=== PATIENT | female | born 1960 | race Caucasian/White ===

== ENCOUNTER 2017-03-16 13:47 | Emergency (ER) | payer BC ==
[~2017-03-16] VITALS: Ht 165.1 cm; Wt 61.3 kg
[~2017-03-16 13:47] MED LIST: CHOL200010 PO; ESTCR TOP; HYDR5TAB PO; PROG1CAP PO; THY/30 PO; THYR90TA PO; [UNRECOGNIZED DRUG - CODE] TOP
[2017-03-16 13:51] VITALS: TEMP 36.8; Ht 165.1 cm; Wt 61.3 kg
[2017-03-16] MEDS ORDERED: LORAZEPAM 2 MG/ML 1 ML VIAL IV STA (14:13)
[2017-03-16 14:31] LABS: BASO % 0.3 %; BASO ABS # 0.02 K/uL (0-0.2); COMPLETE YES; EOS % 0.8 %; HEMATOCRIT 47.7 % (37-47); IG% 0.1 %; LYMPH % 28.4 %; LYMPH ABS # 2.26 K/uL (1.2-3.4); MEAN CELL VOLUME 89.3 fL (80-100); MEAN CORPUSCULAR HEMOGLOBIN 30.7 pg (25-34); MEAN CORPUSCULAR HGB CONC 34.4 g/dl (32-36); MONO % 6.7 %; NEUT % 63.7 %; PLATELET COUNT 239 K/uL (130-400); RED BLOOD COUNT 5.34 M/uL (4.2-5.4); WHITE BLOOD COUNT 7.95 K/uL (4.8-10.8)
--- NOTE | 2017-03-16 14:37 | DIAGNOSTIC IMAGING REPORT ---
SINGLE VIEW CHEST CLINICAL HISTORY: Dyspnea. FINDINGS: An AP, portable, upright chest radiograph is compared to study dated 11/09/2015. The examination is degraded by portable technique and patient rotation. The cardiomediastinal silhouette is unremarkable. The lungs and pleural spaces are clear. No pneumothorax is seen. The bony thorax is grossly intact. Fusion hardware is seen in the lower cervical spine. IMPRESSION: No active disease in the chest. Electronically signed by: James Roland M.D. 03/16/2017 2:35 PM Dictated Date/Time: 03/16/2017 2:35 PM
[2017-03-16 14:41] LABS: PROTHROMBIN TIME (PATIENT) 11.2 SECONDS (9.0-12.0)
[2017-03-16 14:48] LABS: ALT/SGPT 21 U/L (12-78); AST/SGOT 11 U/L (15-37); BLOOD UREA NITROGEN 19 mg/dl (7-18); BUN/CREATININE RATIO 23.3 (10-20); CALCIUM 8.9 mg/dl (8.5-10.1); CARBON DIOXIDE 24 mmol/L (21-32); CHLORIDE 106 mmol/L (98-107); GLUCOSE 99 mg/dl (70-99); MAGNESIUM 2.4 mg/dl (1.8-2.4); POTASSIUM 3.4 mmol/L (3.5-5.1); SODIUM 140 mmol/L (136-145)
[2017-03-16 14:57] LABS: ALKALINE PHOSPHATASE 51 U/L (45-117); THYROID STIMULATING HORMONE < 0.005 uIu/ml (0.300-4.500)
[2017-03-16] MEDS ORDERED: METOPROLOL TARTRATE 1 MG/ML VIAL IV STA (15:04)
[2017-03-16] MEDS ORDERED: POTASSIUM CHLORIDE 10 MEQ TABCR PO STA (15:04)
[2017-03-16] MEDS ORDERED: SODIUM CHLORIDE 0.9% 1000ML 1,000 ML IV STA (15:04)
[2017-03-16] MEDS ORDERED: ESTR0.5T3 PO (15:13)
[2017-03-16 16:16] VITALS: BP 144/80; PULSE 108; O2SAT 98
--- NOTE | 2017-03-16 17:40 | EMERGENCY ROOM VISIT NOTE ---
History Report prepared by Purnima: Christine Garibay Under the Supervision of: Dr. Lanre Burden M.D. First contact with patient: 13:53 Chief Complaint: TACHYCARDIA Stated Complaint: RAPID HEARTBEAT, SOB, DIZZY, ANXIETY Nursing Triage Summary: triage note: pt reports feeling dizzy and "my heart is going really fast." pt reports "it got bad while i was at the grocery store about an hour." History of Present Illness The patient is a 56 year old female who presents to the Emergency Room with complaints of constant tachycardia beginning [employer]. The patient developed palpitations around 10:30am today. She took deep breaths and her symptoms resolved. She called [facility] to make an appointment with her PCP for this afternoon. A couple of hours later the patient was in the grocery store when she felt that her heart was racing. She became lightheaded and anxious and felt like she was going to pass out. The patient felt that she could not wait to be evaluated so she had her daughter bring her to the ED. She has anxiety and states that she has been feeling very anxious lately. The patient denies recent illness, fevers, shortness of breath, vomiting, diarrhea, abdominal pain, urinary symptoms, rectal bleeding, and abnormal vaginal bleeding or discharge. She avoids caffeine. She has been drinking fluids. The patient denies unintentional weight loss. She denies any history of WPW. Source of History: patient Onset: [employer] Position: chest Quality: other (tachycardia) Timing: constant Modifying Factors (Worsening): other (anxiety) Modifying Factors (Relieving): breathing Associated Symptoms: No fevers, No chest pain, No SOB, No vomiting, No abdominal pain, No diarrhea, No urinary symptoms Review of Systems See HPI for pertinent positives & negatives. A total of 10 systems reviewed and were otherwise negative. Past Medical & Surgical Medical Problems: (1) Hypothyroidism (2) Polyp of colon Surgical Problems: (1) H/O colonoscopy Family History Cancer Diabetes mellitus Hypertension Social History Smoking Status: Never Smoker Marital Status: Housing Status: lives with significant other Current/Historical Medications Scheduled Cholecalciferol (Vitamin D), 2,000 UNITS PO Q2D Estradiol (Estradiol), 1 TAB PO DAILY Hydrocortisone (Cortef), 5 MG PO 5-6XD Progesterone Micronized (Progesterone), 100 MG PO DAILY Testosterone Propionate (First-Testosterone), 1 APPLN TOP DAILY Thyroid ([place] Thyroid), 90 MG PO DAILY Thyroid ([place] Thyroid), 30 MG PO DAILY Allergies Coded Allergies: Sulfamethoxazole w/Trimethoprim (Verified Allergy, Unknown, HIVES, 03/16/17 ) Morphine (Verified Adverse Reaction, Unknown, nausea, 03/16/17) Physical Exam Vital Signs Date Time Temp Pulse Resp B/P (MAP) Pulse Ox O2 Delivery O2 Flow Rate FiO2 03/16/17 16:16 108 20 144/80 98 03/16/17 15:45 105 20 132/79 98 Room Air 03/16/17 15:19 122 134/82 03/16/17 15:05 124 20 134/82 96 Room Air 03/16/17 14:04 138 03/16/17 13:51 36.8 145 18 170/102 99 Room Air Physical Exam Constitutional: Vital signs reviewed. Eyes: Pupils are equal round reactive to light. Conjunctiva are noninjected. ENT: Pharynx is clear without erythema or exudate. Mucous membranes are moist. Neck supple without meningeal signs. Respiratory: Clear to auscultation bilaterally. Breath sounds are equal bilaterally. Cardiovascular: Tachycardic rate at 142 and regular rhythm. No rubs or gallops. GI: Soft, nondistended and nontender. Bowel sounds are present. Musculoskeletal: No peripheral edema. No lower extremity tenderness. Integumentary: No cyanosis. Neurological: The patient is awake and alert. No focal deficits. Psychiatric: Anxious Medical Decision & Procedures ER Provider Diagnostic Interpretation: Radiology results as stated below per my review and the radiologist's interpretation: SINGLE VIEW CHEST CLINICAL HISTORY: Dyspnea. FINDINGS: An AP, portable, upright chest radiograph is compared to study dated 11/09/2015. The examination is degraded by portable technique and patient rotation. The cardiomediastinal silhouette is unremarkable. The lungs and pleural spaces are clear. No pneumothorax is seen. The bony thorax is grossly intact. Fusion hardware is seen in the lower cervical spine. IMPRESSION: No active disease in the chest. Electronically signed by: James Roland M.D. 03/16/2017 2:35 PM Dictated Date/Time: 03/16/2017 2:35 PM Laboratory Results 03/16/17 14:10 Red Blood Count 5.34, Mean Corpuscular Volume 89.3, Mean Corpuscular Hemoglobin 30.7, Mean Corpuscular Hemoglobin Concent 34.4, Mean Platelet Volume 10.0, Neutrophils (%) (Auto) 63.7, Lymphocytes (%) (Auto) 28.4, Monocytes (%) (Auto) 6.7, Eosinophils (%) (Auto) 0.8, Basophils (%) (Auto) 0.3, Neutrophils # (Auto) 5.07, Lymphocytes # (Auto) 2.26, Monocytes # (Auto) 0.53, Eosinophils # (Auto) 0.06, Basophils # (Auto) 0.02 03/16/17 14:10 Test 03/16/17 14:10 03/16/17 14:21 White Blood Count 7.95 K/uL (4.8-10.8) Red Blood Count 5.34 M/uL (4.2-5.4) Hemoglobin 16.4 g/dL (12.0-16.0) Hematocrit 47.7 % (37-47) Mean Corpuscular Volume 89.3 fL (80-100) Mean Corpuscular Hemoglobin 30.7 pg (25-34) Mean Corpuscular Hemoglobin Concent 34.4 g/dl (32-36) Platelet Count 239 K/uL (130-400) Mean Platelet Volume 10.0 fL (7.4-10.4) Neutrophils (%) (Auto) 63.7 % Lymphocytes (%) (Auto) 28.4 % Monocytes (%) (Auto) 6.7 % Eosinophils (%) (Auto) 0.8 % Basophils (%) (Auto) 0.3 % Neutrophils # (Auto) 5.07 K/uL (1.4-6.5) Lymphocytes # (Auto) 2.26 K/uL (1.2-3.4) Monocytes # (Auto) 0.53 K/uL (0.11-0.59) Eosinophils # (Auto) 0.06 K/uL (0-0.5) Basophils # (Auto) 0.02 K/uL (0-0.2) RDW Standard Deviation 40.8 fL (36.4-46.3) RDW Coefficient of Variation 12.7 % (11.5-14.5) Immature Granulocyte % (Auto) 0.1 % Immature Granulocyte # (Auto) 0.01 K/uL (0.00-0.02) Prothrombin Time 11.2 SECONDS (9.0-12.0) Prothromb Time International Ratio 1.0 (0.9-1.1) Activated Partial Thromboplast Time 25.6 SECONDS (21.0-31.0) Partial Thromboplastin Ratio 1.0 Anion Gap 10.0 mmol/L (3-11) Est Creatinine Clear Calc Drug Dose 71.5 ml/min Estimated GFR () 96.2 Estimated GFR (Non- 83.0 BUN/Creatinine Ratio 23.3 (10-20) Calcium Level 8.9 mg/dl (8.5-10.1) Magnesium Level 2.4 mg/dl (1.8-2.4) Total Bilirubin 1.1 mg/dl (0.2-1) Direct Bilirubin 0.2 mg/dl (0-0.2) Aspartate Amino Transf (AST/SGOT) 11 U/L (15-37) Alanine Aminotransferase (ALT/SGPT) 21 U/L (12-78) Alkaline Phosphatase 51 U/L (45-117) Total Protein 7.6 gm/dl (6.4-8.2) Albumin 4.2 gm/dl (3.4-5.0) Thyroid Stimulating Hormone (TSH) < 0.005 uIu/ml (0.300-4.500) Free Thyroxine 1.32 ng/dl (0.80-1.60) Bedside Troponin I < 0.030 ng/ml (0-0.045) Laboratory results as reviewed by me. Medications Administered Medications (Trade) Dose Ordered Sig/Shayy Route Start Time Stop Time Status Last Admin Dose Admin Lorazepam (Ativan Inj) 1 mg NOW STAT IV 03/16/17 14:13 03/16/17 14:15 DC 03/16/17 14:32 1 MG Sodium Chloride 1,000 ml @ 999 mls/hr Q1H1M STAT IV 03/16/17 15:04 03/16/17 16:04 DC 03/16/17 15:20 999 MLS/HR Metoprolol Tartrate (Lopressor Iv) 2.5 mg NOW STAT IV 03/16/17 15:04 03/16/17 15:05 DC 03/16/17 15:19 2.5 MG Potassium Chloride (Klor-Con M10) 40 meq NOW STAT PO 03/16/17 15:04 03/16/17 15:05 DC 03/16/17 15:16 40 MEQ ECG Indication: palpitations Rate (beats per minute): 143 Rhythm: sinus tachycardia Findings: no ectopy, other (no ST elevation, no pre-excitation) Comparison ECG Date: repeat ECG in ED 03/16/2017 Change: A repeat ECG reveals sinus tachycardia at 105, no signs of pre-excitation, no QT prolongation, no ectopy, no acute ischemic changes. ED Course 1400: The patient was evaluated in room B6. A complete history and physical exam was performed. 1413: Lorazepam 1 mg IV 1500: I updated the patient. Her HR is in the 120s and she feels less anxious. 1504: Klor-Con M10 40 meq PO, Lopressor 2.5 mg IV, NSS 1000 ml @ 999 mls/hr IV 1530: I reevaluated the patient and she is feeling better. Her HR is 102 and we obtained a repeat ECG. 1547: I reassessed the patient at this time. She is feeling better and resting comfortably. I discussed the results and treatment plan with the patient. I answered all pertaining questions that she had. She expressed understanding and verbalized agreement. The patient will be discharged home. The case reviewer has set up a cardiology referral for the patient. Medical Decision This is a 56-year-old female presents with palpitations. Differential diagnosis includes dysrhythmia, SVT, atrial fibrillation, preexcitation, metabolic derangement, electrolyte abnormality, anxiety. I did perform a limited focused review of portions of the patient's old chart on the electronic medical record. The patient was here last year for rapid HR which was thought to be secondary to hyperthyroidism due to excess thyroid hormone intake. She was treated with IV Lopressor. She was also here for tachycardia in 2013 and had some hypokalemia. I did evaluate the patient as noted above. The patient is presenting with tachycardia which started while shopping. She does feel very anxious but denies any chest pain or shortness of breath. She has had similar episodes in the past without explanation. IV access was established. The patient was placed on a continuous quality assurance monitor final. I did treat her with IV Ativan 1 mg. I did order and personally review the patient's 12-lead EKG and chest x-ray as described above. Her heart rate is in the 140s. She does have sinus tachycardia. I did order and review the patient's blood work as noted in the electronic medical record. He does have mild hypokalemia. She was treated with oral potassium. I did reassess the patient. Her symptoms are improved. Heart rate is in the 120s but she is still tachycardic. I did treat her with a liter normal saline IV and Lopressor 2.5 mg IV. On reassessment her heart rate is about 100. I did repeat a twelve-lead EKG which per my interpretation shows no evidence of acute ischemia or dysrhythmia. She has no evidence of preexcitation or ischemic changes. I did have the case reviewer set up an appointment for her to follow up with cardiology. She was informed of her test results and discharged in good condition. Medication Reconcilliation Current Medication List: was personally reviewed by me Blood Pressure Screening Patient's blood pressure: Elevated blood pressure Blood pressure disposition: Referred to PCP Impression Primary Impression: Tachycardia Additional Impressions: Anxiety Hypokalemia Scribe Attestation The scribe's documentation has been prepared under my direct and personally reviewed by me in its entirety. I confirm that the note above accurately reflects all work, treatment, procedures, and medical decision making performed by me. Departure Information Dispostion Home / Self-Care Referrals No Doctor, Assigned (PCP) Jessica Govea M.D. Forms HOME CARE DOCUMENTATION FORM, IMPORTANT VISIT INFORMATION, WORK / SCHOOL INSTRUCTIONS Patient Instructions My [facility] Additional Instructions You have been examined and treated today on an emergency basis only. This is not a substitute for, or an effort to provide, complete comprehensive medical care. It is impossible to recognize and treat all injuries or illnesses in a single emergency department visit. It is therefore important that you follow up closely with your physician and cardiology. Call as soon as possible for an appointment. Return for worsening symptoms or if you develop fever, vomiting, chest pain, shortness of breath or any other concerning symptoms. Problem Qualifiers
[2017-03-20] MEDS ORDERED: [UNRECOGNIZED DRUG - CODE] TOP (12:34)
[2017-03-20] MEDS ORDERED: TNR25 PO (17:12)
== END 2017-03-16 16:17 | disposition home or self-care (01) ==
LOC: C.EDB 13:48
DX: R00.0 Tachycardia, unspecified (principal); F41.9 Anxiety disorder, unspecified; E87.6 Hypokalemia; E03.9 Hypothyroidism, unspecified; Z83.3 Family history of diabetes mellitus; Z82.49 Family history of ischemic heart disease and other diseases of the circulatory system